=== PATIENT | female | born 1980 | race Caucasian/White ===

== ENCOUNTER 2016-08-14 04:44 | Emergency (ER) | payer MEDICAID ==
[~2016-08-14] VITALS: Ht 157.5 cm; Wt 64.0 kg
[~2016-08-14 04:44] MED LIST: CIPR500T4 PO
[2016-08-14 04:45] VITALS: Ht 157.5 cm; Wt 64.0 kg
== END 2016-08-14 06:47 | disposition left against medical advice (07) ==
LOC: FTE 04:44
DX: Z53.21 Procedure and treatment not carried out due to patient leaving prior to being seen by health care provider (principal)